=== PATIENT | male | born 1995 | race Hispanic/Latino ===

== ENCOUNTER 2018-05-09 02:25 | Emergency (ER) | payer MEDICAID, OTHER ==
[2018-05-09 02:33] VITALS: BMI 23.6
[2018-05-09 02:44] VITALS: TEMP 98
--- NOTE | 2018-05-09 03:51 | CT ---
EXAM: CT Head Without Intravenous Contrast CLINICAL HISTORY: 22 years old, male; Injury or trauma; Injury ETOH; Initial encounter; Blunt trauma (contusions or hematomas); Additional info: Head injury, alcohol abuse TECHNIQUE: Axial computed tomography images of the head/brain without intravenous contrast. All CT scans at this facility use at least one of these dose optimization techniques: automated exposure control; mA and/or kV adjustment per patient size (includes targeted exams where dose is matched to clinical indication); or iterative reconstruction. Coronal and sagittal reformatted images were created and reviewed. COMPARISON: No relevant prior studies available. FINDINGS: Brain: No hemorrhage. No significant periventricular microischemic changes. No edema. Ventricles: Appropriate for patient's age. Bones/joints: No acute fracture. Soft tissues: No radiopaque foreign body. Sinuses: No acute sinusitis. Mastoid air cells: No mastoid effusion. IMPRESSION: No acute CT intracranial abnormalities.
--- NOTE | 2018-05-09 04:00 | ED PDOC ---
HPI: Psych/Substance Abuse Time Seen by Provider: 05/09/18 02:33 Chief Complaint (Nursing): Alcohol Ingestion Chief Complaint (Provider): Head injury, ETOH History Per: Patient History/Exam Limitations: no limitations Onset/Duration Of Symptoms: Mins Current Symptoms Are (Timing): Still Present Additional Complaint(s): Pt without complaints. Pt with girlfriend who states that he fell down steps earlier in the evening and has been drinking. No LOC. No vomiting Past Medical History Reviewed: Historical Data, Nursing Documentation, Vital Signs Vital Signs: Last Vital Signs Temp 98.0 F 05/09/18 02:33 Pulse 110 H 05/09/18 02:33 Resp 18 05/09/18 02:33 BP 157/91 H 05/09/18 02:33 Pulse Ox 98 05/09/18 02:33 - Medical History PMH: No Chronic Diseases - Surgical History Surgical History: No Surg Hx - Family History Family History: States: Unknown Family Hx - Living Arrangements Living Arrangements: With Family - Social History Current smoker - smoking cessation education provided: No - Home Medications Home Medications: Ambulatory Orders Medication Instructions Recorded Ibuprofen [Motrin] 600 mg PO Q6H #20 tab 04/26/18 - Allergies Allergies/Adverse Reactions: Allergies Allergy/AdvReac Type Severity Reaction Status Date / Time No Known Allergies Allergy Unverified 05/09/18 02:33 Review of Systems ROS Statement: Except As Marked, All Systems Reviewed And Found Negative Constitutional: Negative for: Fever, Chills ENT: Negative for: Nose Discharge Respiratory: Negative for: Cough Gastrointestinal: Negative for: Nausea, Vomiting Physical Exam - Reviewed Nursing Documentation Reviewed: Yes Vital Signs Reviewed: Yes - Physical Exam Appears: Positive for: Well, Non-toxic, No Acute Distress Head Exam: Positive for: ATRAUMATIC, NORMAL INSPECTION, NORMOCEPHALIC Skin: Positive for: Normal Color, Warm, DRY Eye Exam: Positive for: Normal appearance ENT: Positive for: Normal ENT Inspection Neck: Positive for: Normal, Painless ROM Cardiovascular/Chest: Positive for: Regular Rate, Rhythm Respiratory: Positive for: Normal Breath Sounds. Negative for: Accessory Muscle Use, Respiratory Distress Back: Positive for: Normal Inspection Extremity: Positive for: Normal ROM Neurologic/Psych: Positive for: Alert, Oriented - ECG O2 Sat by Pulse Oximetry: 98 Medical Decision Making Medical Decision Making: Head Ct normal. Disposition - Clinical Impression Clinical Impression: Head injury - Patient ED Disposition Is Patient to be Admitted: No Counseled Patient/Family Regarding: Diagnosis, Need For Followup - Disposition Referrals: [facility] [Outside] Disposition: Routine/Home Disposition Time: 03:59 Condition: STABLE Instructions: Closed Head Injury (DC) Forms: Imperator (Greek)
[2018-05-09 05:12] VITALS: BP 149/80; PULSE 72; RESP 16; O2SAT 99
== END 2018-05-09 04:00 | disposition home or self-care (01) ==
LOC: H.ER 02:25
DX: F10.10 Alcohol abuse, uncomplicated (principal); S09.90XA Unspecified injury of head, initial encounter; W10.9XXA Fall (on) (from) unspecified stairs and steps, initial encounter; Y92.89 Other specified places as the place of occurrence of the external cause

== ENCOUNTER 2018-06-03 17:52 | Observation (INO) | payer MEDICAID, OTHER ==
[2018-06-03 17:53] VITALS: BMI 23.6
[2018-06-03 18:09] VITALS: O2SAT 99
[2018-06-03] MEDS ORDERED: ceFAZolin IV 1 gm in Dextrose 1 GM/50 ML BAG IVPB ONE (18:15)
[2018-06-03] MEDS ORDERED: Tdap Vaccine 0.5 ml Vial (10-64 yrs) IM ONE ×2 (18:15→18:23)
--- NOTE | 2018-06-03 18:24 | ED PDOC ---
Upper Extremity Pain/Injury Time Seen by Provider: 06/03/18 18:10 Chief Complaint (Nursing): Finger,Hand,&Wrist Chief Complaint (Provider): right thumb injury History Per: Patient History/Exam Limitations: no limitations Onset/Duration Of Symptoms: Days (2x) Current Symptoms Are (Timing): Still Present Severity: Moderate Additional Complaint(s): 22 year old male (right hand dominant) with no pertinent past medical history presents to the ED with complaints of right thumb pain status post an injury that occurred 2x days ago. Patient states he accidentally slammed his right thumb in a door, which caused pain and swelling. Patient reports that there was an open wound at the time of injury. PMD: None provided Past Medical History Reviewed: Historical Data, Nursing Documentation, Vital Signs Vital Signs: Last Vital Signs Temp 97.9 F 06/03/18 18:07 Pulse 78 06/03/18 18:07 Resp 18 06/03/18 18:07 BP 160/95 H 06/03/18 18:07 Pulse Ox 99 06/03/18 18:07 - Medical History PMH: No Chronic Diseases - Surgical History Surgical History: No Surg Hx - Family History Family History: States: No Known Family Hx - Social History Current smoker - smoking cessation education provided: Yes Alcohol: Other (yes) Drugs: Denies - Home Medications Home Medications: Ambulatory Orders Medication Instructions Recorded Ibuprofen [Motrin] 600 mg PO Q6H PRN 06/04/18 - Allergies Allergies/Adverse Reactions: Allergies Allergy/AdvReac Type Severity Reaction Status Date / Time No Known Allergies Allergy Unverified 05/09/18 02:33 Review of Systems ROS Statement: Except As Marked, All Systems Reviewed And Found Negative Musculoskeletal: Positive for: Other (right thumb pain and swelling) Physical Exam - Reviewed Nursing Documentation Reviewed: Yes Vital Signs Reviewed: Yes - Physical Exam Appears: Positive for: Well, Non-toxic, No Acute Distress Head Exam: Positive for: ATRAUMATIC, NORMOCEPHALIC Skin: Positive for: Normal Color Extremity: Positive for: Swelling (moderate swelling and fluctuance noted at dorsal surface of thumb distally. ), Other (right thumb: mild erythema). Negative for: Normal ROM (right thumb: limited ROM due to pain) Neurologic/Psych: Positive for: Alert, Oriented (3x) - Laboratory Results Result Diagrams: 06/04/18 08:11 06/04/18 08:11 - ECG O2 Sat by Pulse Oximetry: 99 (RA) Pulse Ox Interpretation: Normal - Progress ED Course And Treament: xry of hand: no fx d/w Dr. Quiroz. Recommends admission with iv antibiotics with I & D. Requests surg resident for evaluation of patient. Case d/w hospitalist Dr. Damon. Medical Decision Making Medical Decision Makin:10 Initial impression: 22 year old male with a right thumb injury Initial plan: * XRay hand right thumb * ancef 1 gm IV NS 100 mL IVPB once * tetanus 0.5 mL IM once * toradol 15 mg IVP * BMP * CBC * blood culture * reevaluation Scribe Attestation: Documented by Vee Henning, acting as a scribe for Gloria Hester PA-C. Provider Scribe Attestation: All medical record entries made by the Scribe were at my direction and personally dictated by me. I have reviewed the chart and agree that the record accurately reflects my personal performance of the history, physical exam, medical decision making, and the department course for this patient. I have also personally directed, reviewed, and agree with the discharge instructions and disposition. Disposition - Clinical Impression Clinical Impression: Cellulitis of right hand - Patient ED Disposition Is Patient to be Admitted: No - Disposition Disposition: Routine/Home Disposition Time: 20:19 Condition: FAIR - Pt Status Changed To: Hospital Disposition Of: Observation
--- NOTE | 2018-06-03 18:39 | RAD ---
Date of service: 06/03/2018 PROCEDURE: Right Thumb radiographs. HISTORY: Injury COMPARISON: None. TECHNIQUE: AP radiograph of the right hand, as well as spot oblique and lateral images of thumb were obtained. FINDINGS: RIGHT THUMB: Normal right thumb, without acute fracture or focal lesion. Remainder of the right hand (as seen on the AP view) grossly unremarkable. JOINTS: Normal. SOFT TISSUES: Normal. OTHER FINDINGS: None. IMPRESSION: No acute fracture or dislocation.
[2018-06-03 18:57] LABS: BASO # 0.1 K/uL (0.0-0.2); BASO % 0.6 % (0.0-2.0); EOS # 0.4 K/uL (0.0-0.7); EOS % 2.6 % (0.0-4.0); HEMOGLOBIN 16.7 g/dL (12.0-18.0); LYMPH # 2.8 K/uL (1.0-4.3); LYMPH % 19.5 % (20.0-40.0); MEAN CELL VOLUME 93.3 fl (80.0-94.0); MEAN CORPUSCULAR HEMOGLOBIN 31.3 pg (27.0-31.0); MEAN CORPUSCULAR HGB CONC 33.5 g/dL (33.0-37.0); MONO # 1.2 K/uL (0.0-0.8); MONO % 8.6 % (0.0-10.0); NEUT # 9.8 K/uL (1.8-7.0); NEUT % 68.7 % (50.0-75.0); RBC 5.35 Mil/uL (4.40-5.90); WHITE BLOOD COUNT 14.2 K/uL (4.8-10.8)
[2018-06-03 19:04] LABS: BLOOD UREA NITROGEN 16 mg/dl (9-20); CALCIUM 9.6 mg/dL (8.4-10.2); GFR NON-AFRICAN AMERICAN > 60
--- NOTE | 2018-06-03 22:36 | CP.PCM.HP ---
<Sameer Godinez - Last Filed: 06/04/18 06:18> History of Present Illness - History of Present Illness History of Present Illness: 22 year old male presents with 4 day history of thumb pain that began after slamming his right thumb in a door. Pain worsened along with swelling and erythema. He denies any fevers or chills. No drainage. No numbness or tingling of arm or hand. Otherwise patient feels well without other complaints. States ' I think I have a clot in my thumb' No chest pain, dyspnea, abdominal pain, nausea, vomiting, diarrhea. Patient cooperative but agitated throughout interview. PMH: denies MEdications: none No known drug allergies Social hx: works as digital production artist. denies etoh, tobacco, substance use Surgical Hx: hernia repair Present on Admission - Present on Admission Any Indicators Present on Admission: No Review of Systems - Constitutional Constitutional: absent: Chills, Fever - EENT Nose/Mouth/Throat: absent: Nasal Congestion, Nasal Discharge - Cardiovascular Cardiovascular: absent: Chest Pain, Chest Pain at Rest, Dyspnea - Respiratory Respiratory: absent: Cough, Dyspnea - Gastrointestinal Gastrointestinal: absent: Abdominal Pain, Nausea, Vomiting - Musculoskeletal Musculoskeletal: Other (pain right thumb). absent: Numbness, Tingling - Integumentary Integumentary: Erythema (erythema and edema of right thumb) Past Patient History - Infectious Disease Hx of Infectious Diseases: None - Past Social History Smoking Status: Never Smoked Alcohol: None (yes) Drugs: Denies - PSYCHIATRIC Hx Substance Use: No - SURGICAL HISTORY Hx Surgeries: No Meds Allergies/Adverse Reactions: Allergies Allergy/AdvReac Type Severity Reaction Status Date / Time No Known Allergies Allergy Unverified 05/09/18 02:33 Physical Exam - Constitutional Appears: Agitated - Head Exam Head Exam: ATRAUMATIC, NORMAL INSPECTION, NORMOCEPHALIC - Eye Exam Eye Exam: EOMI, Normal appearance, PERRL - ENT Exam ENT Exam: Mucous Membranes Moist, Normal Exam - Respiratory Exam Respiratory Exam: Clear to Auscultation Bilateral, NORMAL BREATHING PATTERN - Cardiovascular Exam Cardiovascular Exam: REGULAR RHYTHM, +S1, +S2 - Extremities Exam Additional comments: left hand unremarkable, significant right thumb erythema and edema - Neurological Exam Neurological exam: Alert, Oriented x3 - Psychiatric Exam Psychiatric exam: Agitated, Anxious - Skin Skin Exam: Erythema (right thumb) Results - Vital Signs Recent Vital Signs: Last Vital Signs Temp 98.5 F 06/03/18 21:44 Pulse 87 06/03/18 21:44 Resp 17 06/03/18 21:44 BP 142/81 06/03/18 21:44 Pulse Ox 99 06/03/18 21:17 - Labs Result Diagrams: 06/03/18 18:30 06/03/18 18:30 Labs: Laboratory Results - last 24 hr 06/03/18 06/03/18 18:30 18:30 WBC 14.2 H RBC 5.35 Hgb 16.7 Hct 49.9 MCV 93.3 MCH 31.3 H MCHC 33.5 RDW 14.0 Plt Count 253 MPV 8.0 Neut % (Auto) 68.7 Lymph % (Auto) 19.5 L [place] % (Auto) 8.6 Eos % (Auto) 2.6 Baso % (Auto) 0.6 Neut # (Auto) 9.8 H Lymph # (Auto) 2.8 [place] # (Auto) 1.2 H Eos # (Auto) 0.4 Baso # (Auto) 0.1 Sodium 141 Potassium 4.2 Chloride 104 Carbon Dioxide 27 Anion Gap 14 BUN 16 Creatinine 0.7 L Est GFR ( Amer) > 60 Est GFR (Non-Af Amer) > 60 Random Glucose 83 Calcium 9.6 Assessment & Plan - Assessment and Plan (Free Text) Assessment: 22 year old male admitted for right thumb cellulitis, possible abscess. Patient is hemodynamically stable and afebrile without leukocytosis. #Cellulitis with possible abscess of right thumb #DVT prophylaxis IVF Unasyn Surgical consult scds patient seen and examined with attending. <Sorin [place] - Last Filed: 06/04/18 06:45> Results - Vital Signs Recent Vital Signs: Last Vital Signs Temp 99.5 F 06/03/18 23:00 Pulse 93 H 06/03/18 23:00 Resp 20 06/03/18 23:30 BP 142/79 06/03/18 23:00 Pulse Ox 99 06/03/18 23:00 - Labs Result Diagrams: 06/03/18 18:30 06/03/18 18:30 Labs: Laboratory Results - last 24 hr 06/03/18 06/03/18 18:30 18:30 WBC 14.2 H RBC 5.35 Hgb 16.7 Hct 49.9 MCV 93.3 MCH 31.3 H MCHC 33.5 RDW 14.0 Plt Count 253 MPV 8.0 Neut % (Auto) 68.7 Lymph % (Auto) 19.5 L [place] % (Auto) 8.6 Eos % (Auto) 2.6 Baso % (Auto) 0.6 Neut # (Auto) 9.8 H Lymph # (Auto) 2.8 [place] # (Auto) 1.2 H Eos # (Auto) 0.4 Baso # (Auto) 0.1 Sodium 141 Potassium 4.2 Chloride 104 Carbon Dioxide 27 Anion Gap 14 BUN 16 Creatinine 0.7 L Est GFR ( Amer) > 60 Est GFR (Non-Af Amer) > 60 Random Glucose 83 Calcium 9.6
[2018-06-03] MEDS ORDERED: Lactated Ringer's 1,000 ML IV SCH (23:30)
--- NOTE | 2018-06-03 23:48 | CP.PCM.CON ---
History of Present Illness - History of Present Illness History of Present Illness: HAND SURGERY CONSULT NOTE FOR DR. GAMEZ 22 year old RHD male presents with Right thumb pain and swelling. On Thursday (5 days ago), he slammed his thumb in a door of a truck. There were no lacerations to the thumb and he continued work. 2 days ago, he started to have pain and swelling to the distal thumb. He denies any discharge from the area. No fever or chills. He states that he obtained over the counter antibiotics but he does not recall the name. He started taking them yesterday but without relief. 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 PMHx: denies Surgeries: Right inguinal hernia repair Medications: none Allergies: none Social hx: drinks etoh twice a week, smokes 3 cigarettes daily, marijuana use and cocaine use (last yesterday) Review of Systems - Review of Systems All systems: reviewed and no additional remarkable complaints except (as per HPI) Past Patient History - Infectious Disease Hx of Infectious Diseases: None - Past Social History Smoking Status: Never Smoked Alcohol: None (yes) Drugs: Denies - PSYCHIATRIC Hx Substance Use: No - SURGICAL HISTORY Hx Surgeries: No Meds Allergies/Adverse Reactions: Allergies Allergy/AdvReac Type Severity Reaction Status Date / Time No Known Allergies Allergy Unverified 05/09/18 02:33 - Medications Medications: Current Medications Ampicillin Sodium/Sulbactam (Sodium 1.5 gm/ Sodium Chloride) 100 mls @ 100 mls/hr IVPB Q6 JIMMY; Protocol Last Admin: 06/03/18 22:49 Dose: 100 mls/hr Lactated Ringer's (Lactated Ringer's) 1,000 mls @ 150 mls/hr IV .Q6H40M JIMMY Ibuprofen (Motrin Tab) 400 mg PO Q6H PRN PRN Reason: Pain, Mild (1-3) Pantoprazole Sodium (Protonix Ec Tab) 40 mg PO DAILY JIMMY Physical Exam - Constitutional Appears: Well, Non-toxic, No Acute Distress - Head Exam Head Exam: ATRAUMATIC, NORMAL INSPECTION - Eye Exam Eye Exam: EOMI, Normal appearance - ENT Exam ENT Exam: Mucous Membranes Moist - Respiratory Exam Respiratory Exam: NORMAL BREATHING PATTERN. absent: Respiratory Distress - Cardiovascular Exam Cardiovascular Exam: +S1, +S2 - GI/Abdominal Exam GI & Abdominal Exam: Soft. absent: Distended, Firm, Tenderness - Extremities Exam Additional comments: Right thumb distal to IP joint, edema, erythema with area of fluctuance and tenderness - Neurological Exam Neurological exam: Alert, CN II-XII Intact, Oriented x3 - Psychiatric Exam Psychiatric exam: Normal Affect, Normal Mood - Skin Skin Exam: Dry, Normal Color, Warm Results - Vital Signs Recent Vital Signs: Last Vital Signs Temp 98.5 F 06/03/18 21:44 Pulse 87 06/03/18 21:44 Resp 17 06/03/18 21:44 BP 142/81 06/03/18 21:44 Pulse Ox 99 06/03/18 21:17 - Labs Result Diagrams: 06/03/18 18:30 06/03/18 18:30 Labs: Laboratory Results - last 24 hr 06/03/18 06/03/18 18:30 18:30 WBC 14.2 H RBC 5.35 Hgb 16.7 Hct 49.9 MCV 93.3 MCH 31.3 H MCHC 33.5 RDW 14.0 Plt Count 253 MPV 8.0 Neut % (Auto) 68.7 Lymph % (Auto) 19.5 L [place] % (Auto) 8.6 Eos % (Auto) 2.6 Baso % (Auto) 0.6 Neut # (Auto) 9.8 H Lymph # (Auto) 2.8 [place] # (Auto) 1.2 H Eos # (Auto) 0.4 Baso # (Auto) 0.1 Sodium 141 Potassium 4.2 Chloride 104 Carbon Dioxide 27 Anion Gap 14 BUN 16 Creatinine 0.7 L Est GFR ( Amer) > 60 Est GFR (Non-Af Amer) > 60 Random Glucose 83 Calcium 9.6 Assessment & Plan - Assessment and Plan (Free Text) Assessment: 22 year old RHD male presents with Right thumb abscess - Afebrile, VSS - Leukocytosis WBC 14.2 - X-ray: no fracture - Bedside I&D performed. Purulent drainage expressed. Culture sent. Wound irrigated with saline and packed with iodaform. - Regular diet - IV antibiotics - FU labs in AM - Discussed plan with Dr. Gabriella Perez PGY-4 - Incision & Drainage Of Abscess Anesthesia: Lidocaine 2% Prep Used: Betadine Procedure: Incised W/Scalpel Blade#: (11 blade), Drained Pus, Irrigated Cavity W/Saline, Probed To Break Up Loculations, Packed W/Gauze (08/20 iodaform), Cultures Obtained And Sent To Lab
[2018-06-04 03:34] VITALS: RESP 20
[2018-06-04 08:24] LABS: BASO # 0.1 K/uL (0.0-0.2); BASO % 0.3 % (0.0-2.0); EOS # 0.4 K/uL (0.0-0.7); EOS % 3.1 % (0.0-4.0); HEMOGLOBIN 14.3 g/dL (12.0-18.0); LYMPH # 1.9 K/uL (1.0-4.3); LYMPH % 13.1 % (20.0-40.0); MEAN CELL VOLUME 93.3 fl (80.0-94.0); MEAN CORPUSCULAR HGB CONC 34.3 g/dL (33.0-37.0); MEAN PLATELET VOLUME 8.1 fl (7.2-11.7); MONO # 1.4 K/uL (0.0-0.8); NEUT # 10.6 K/uL (1.8-7.0); NEUT % 73.5 % (50.0-75.0); NRBC % 0.1 % (0.0-0.0); RBC 4.47 Mil/uL (4.40-5.90); RED CELL DISTRIBUTION WIDTH 13.9 % (11.5-14.5); WHITE BLOOD COUNT 14.4 K/uL (4.8-10.8)
[2018-06-04 08:27] LABS: BLOOD UREA NITROGEN 15 mg/dl (9-20); CALCIUM 8.7 mg/dL (8.4-10.2); GFR NON-AFRICAN AMERICAN > 60
[2018-06-04] MEDS ORDERED: Pantoprazole 40 mg EC Tab PO SCH (09:00)
[2018-06-04 09:01] VITALS: BP 140/72; PULSE 84; TEMP 98.7
--- NOTE | 2018-06-04 09:47 | CP.PCM.PN ---
Subjective - Date & Time of Evaluation Date of Evaluation: 06/04/18 Time of Evaluation: 07:00 - Subjective Subjective: Surgery: Dr. Quiroz Pt seen and examined. No acute overnight events. States he feels ok but has pain in his R thumb at the I&D site. Pt states he wants to leave and doesn't want to stay in the hospital any longer. Denies fevers/chills. Objective - Vital Signs/Intake and Output Vital Signs (last 24 hours): Temp Pulse Resp BP Pulse Ox 98.7 F 84 20 140/72 99 06/04/18 09:00 06/04/18 09:00 06/04/18 09:00 06/04/18 09:00 06/04/18 09:00 - Medications Medications: Current Medications Acetaminophen (Tylenol 325mg Tab) 975 mg PO Q8 [facility] Last Admin: 06/04/18 09:32 Dose: 975 mg Ampicillin Sodium/Sulbactam (Sodium 1.5 gm/ Sodium Chloride) 100 mls @ 100 mls/hr IVPB Q6 JIMMY; Protocol Last Admin: 06/04/18 04:20 Dose: 100 mls/hr Lactated Ringer's (Lactated Ringer's) 1,000 mls @ 150 mls/hr IV .Q6H40M JIMMY Last Admin: 06/04/18 00:41 Dose: 150 mls/hr Ibuprofen (Motrin Tab) 400 mg PO Q6H PRN PRN Reason: Pain, Mild (1-3) Last Admin: 06/04/18 04:25 Dose: 400 mg Ketorolac Tromethamine (Toradol) 15 mg IVP Q6 PRN PRN Reason: Pain, severe (8-10) Last Admin: 06/04/18 06:42 Dose: 15 mg Pantoprazole Sodium (Protonix Ec Tab) 40 mg PO DAILY JIMMY Last Admin: 06/04/18 08:38 Dose: 40 mg - Labs Labs: 06/04/18 08:11 06/04/18 08:11 - Constitutional Appears: Well, No Acute Distress - Head Exam Head Exam: ATRAUMATIC, NORMOCEPHALIC - Eye Exam Eye Exam: Normal appearance - ENT Exam ENT Exam: Mucous Membranes Moist - Cardiovascular Exam Cardiovascular Exam: RRR - Extremities Exam Additional comments: R thumb with cellulitic changes extending down to the MCP, incision on the volar thumb clean with packing - Neurological Exam Neurological Exam: Alert, Awake, Oriented x3 - Skin Skin Exam: Dry, Warm Assessment and Plan - Assessment and Plan (Free Text) Assessment: 22M with R thumb abscess/cellulitis s/p bedside I&D Plan: - cont IV ABX - warm saline/betadyne soaks for 30 mins TID - elevate R arm/hand - d/w Dr. Gabriella Byrd
--- NOTE | 2018-06-04 10:04 | CP.PCM.DIS ---
<Meche Morris - Last Filed: 06/04/18 10:05> Provider - Provider Date of Admission: 06/03/18 20:16 Attending physician: Anam Damon MD Time Spent in preparation of Discharge (in minutes): 35 Diagnosis - Discharge Diagnosis (1) Abscess of finger of right hand Status: Acute (2) Cellulitis of right hand Status: Acute Hospital Course - Lab Results Lab Results: Most Recent Lab Values WBC 14.4 K/uL (4.8-10.8) H 06/04/18 08:11 RBC 4.47 Mil/uL (4.40-5.90) 06/04/18 08:11 Hgb 14.3 g/dL (12.0-18.0) D 06/04/18 08:11 Hct 41.7 % (35.0-51.0) 06/04/18 08:11 MCV 93.3 fl (80.0-94.0) 06/04/18 08:11 MCH 32.0 pg (27.0-31.0) H 06/04/18 08:11 MCHC 34.3 g/dL (33.0-37.0) 06/04/18 08:11 RDW 13.9 % (11.5-14.5) 06/04/18 08:11 Plt Count 220 K/uL (130-400) 06/04/18 08:11 MPV 8.1 fl (7.2-11.7) 06/04/18 08:11 Neut % (Auto) 73.5 % (50.0-75.0) 06/04/18 08:11 Lymph % (Auto) 13.1 % (20.0-40.0) L 06/04/18 08:11 Frio % (Auto) 10.0 % (0.0-10.0) 06/04/18 08:11 Eos % (Auto) 3.1 % (0.0-4.0) 06/04/18 08:11 Baso % (Auto) 0.3 % (0.0-2.0) 06/04/18 08:11 Neut # (Auto) 10.6 K/uL (1.8-7.0) H 06/04/18 08:11 Lymph # (Auto) 1.9 K/uL (1.0-4.3) 06/04/18 08:11 Frio # (Auto) 1.4 K/uL (0.0-0.8) H 06/04/18 08:11 Eos # (Auto) 0.4 K/uL (0.0-0.7) 06/04/18 08:11 Baso # (Auto) 0.1 K/uL (0.0-0.2) 06/04/18 08:11 Sodium 138 mmol/l (132-148) 06/04/18 08:11 Potassium 4.0 MMOL/L (3.6-5.0) 06/04/18 08:11 Chloride 105 mmol/L (98-107) 06/04/18 08:11 Carbon Dioxide 26 mmol/L (22-30) 06/04/18 08:11 Anion Gap 11 (10-20) 06/04/18 08:11 BUN 15 mg/dl (9-20) 06/04/18 08:11 Creatinine 0.6 mg/dl (0.8-1.5) L 06/04/18 08:11 Est GFR ( Amer) > 60 06/04/18 08:11 Est GFR (Non-Af Amer) > 60 06/04/18 08:11 Random Glucose 111 mg/dL (75-110) H 06/04/18 08:11 Calcium 8.7 mg/dL (8.4-10.2) 06/04/18 08:11 - Hospital Course Hospital Course: 22 YO Male with no sig PMHx was admitted for right thumb cellulitis, and abscess. Patient underwent a bedside I&D by hand surgery and has been on IV antibiotics. This AM patient refuse further care and signed out against medical advice. Risks of AMA reviewed with patient including but not limited to wo rsening infection, abscess, sepsis, amputation, . Patient is currently hemodynamically stable and afebrile. Discharge Exam - Head Exam Head Exam: ATRAUMATIC, NORMOCEPHALIC - Eye Exam Eye Exam: EOMI, Normal appearance - ENT Exam ENT Exam: Mucous Membranes Moist - Respiratory Exam Respiratory Exam: Clear to PA & Lateral, NORMAL BREATHING PATTERN. absent: Wheezes - Cardiovascular Exam Cardiovascular Exam: REGULAR RHYTHM, +S1, +S2 - GI/Abdominal Exam GI & Abdominal Exam: Normal Bowel Sounds, Soft. absent: Tenderness - Extremities Exam Extremities exam: normal inspection Additional comments: R thumb in dressing Mild erythema around R thumb, no erythema on palm of the hand, or arms Good Cap refill Moving all fingers - Neurological Exam Neurological exam: Alert, Oriented x3 - Skin Skin Exam: Dry, Intact Discharge Plan - Follow Up Plan Condition: FAIR Disposition: AGAINST MEDICAL ADVICE Instructions: Skin Abscess, How to Wash Your Hands Properly, Cellulitis (Skin Infection), Adult (DC) Additional Instructions: follow up [address] Quiroz(hand surgeon). Soak for 30 minutes 3 times a day.: cup with 1/2 normal saline and 1/2 Betadine solution. Keep dry dressing on thumb. Against Medical Advice - AMA Patient Left Against Medical Advice: The patient declines admission to the hospital and wishes to leave the Hospital. This action is against my medical advice. This decision was made with informed refusal. The patient was told that admission to the hospital is necessary. Explanation of the reasons why were discussed. The risks of leaving were explained to the patient and include, but are not limited to, worsening of known or currently unknown conditions, permanent disability and from undiagnosed or untreated conditions. The patient has the capacity to make this informed decision and understands my explanation of the current medical problem and risks of leaving. The patient voluntarily accepts these risks and signed an AMA form documenting our conversation. The patient was given the opportunity to ask questions and reconsider. The patient was encouraged to return to the Emergency Department at any time for further care. <Anam Damon - Last Filed: 06/04/18 11:26> Provider - Provider Date of Admission: 06/03/18 20:16 Attending physician: Anam Damon MD Hospital Course - Lab Results Lab Results: Most Recent Lab Values WBC 14.4 K/uL (4.8-10.8) H 06/04/18 08:11 RBC 4.47 Mil/uL (4.40-5.90) 06/04/18 08:11 Hgb 14.3 g/dL (12.0-18.0) D 06/04/18 08:11 Hct 41.7 % (35.0-51.0) 06/04/18 08:11 MCV 93.3 fl (80.0-94.0) 06/04/18 08:11 MCH 32.0 pg (27.0-31.0) H 06/04/18 08:11 MCHC 34.3 g/dL (33.0-37.0) 06/04/18 08:11 RDW 13.9 % (11.5-14.5) 06/04/18 08:11 Plt Count 220 K/uL (130-400) 06/04/18 08:11 MPV 8.1 fl (7.2-11.7) 06/04/18 08:11 Neut % (Auto) 73.5 % (50.0-75.0) 06/04/18 08:11 Lymph % (Auto) 13.1 % (20.0-40.0) L 06/04/18 08:11 Frio % (Auto) 10.0 % (0.0-10.0) 06/04/18 08:11 Eos % (Auto) 3.1 % (0.0-4.0) 06/04/18 08:11 Baso % (Auto) 0.3 % (0.0-2.0) 06/04/18 08:11 Neut # (Auto) 10.6 K/uL (1.8-7.0) H 06/04/18 08:11 Lymph # (Auto) 1.9 K/uL (1.0-4.3) 06/04/18 08:11 Frio # (Auto) 1.4 K/uL (0.0-0.8) H 06/04/18 08:11 Eos # (Auto) 0.4 K/uL (0.0-0.7) 06/04/18 08:11 Baso # (Auto) 0.1 K/uL (0.0-0.2) 06/04/18 08:11 Sodium 138 mmol/l (132-148) 06/04/18 08:11 Potassium 4.0 MMOL/L (3.6-5.0) 06/04/18 08:11 Chloride 105 mmol/L (98-107) 06/04/18 08:11 Carbon Dioxide 26 mmol/L (22-30) 06/04/18 08:11 Anion Gap 11 (10-20) 06/04/18 08:11 BUN 15 mg/dl (9-20) 06/04/18 08:11 Creatinine 0.6 mg/dl (0.8-1.5) L 06/04/18 08:11 Est GFR ( Amer) > 60 06/04/18 08:11 Est GFR (Non-Af Amer) > 60 06/04/18 08:11 Random Glucose 111 mg/dL (75-110) H 06/04/18 08:11 Calcium 8.7 mg/dL (8.4-10.2) 06/04/18 08:11 Against Medical Advice - AMA Patient Left Against Medical Advice: The patient declines admission to the hospital and wishes to leave the Emergency Department. This action is against my medical advice. This decision was made with informed refusal. The patient was told that admission to the hospital is necessary. Explanation of the reasons why were discussed. The risks of leaving were explained to the patient and include, but are not limited to, worsening of known or currently unknown conditions, permanent disability and from undiagnosed or untreated conditions. The patient has the capacity to make this informed decision and understands my explanation of the current medical problem and risks of leaving. The patient voluntarily accepts these risks and signed an AMA form documenting our conversation. The patient was given the opportunity to ask questions and reconsider. The patient was encouraged to return to the Emergency Department at any time for further care. Attending/Attestation - Attestation I have personally seen and examined this patient.: Yes I have fully participated in the care of the patient.: Yes I have reviewed all pertinent clinical information, including history, physical exam and plan: Yes Notes (Text): 06/04/18 11:22 Patient was discharged against advised and refused further treatment after I&D of the abscess on the right thumb and receiving 2 doses of IV Unasyn and 1 dose of IV Cefazolin.
== END 2018-06-04 10:25 | disposition left against medical advice (07) ==
LOC: H.ER 17:52 → INTOOBSV 20:16 → H.ERHOLD 20:16 → H.PEDS 21:58
DX: L02.511 Cutaneous abscess of right hand (principal); L03.113 Cellulitis of right upper limb; Z23 Encounter for immunization; F12.90 Cannabis use, unspecified, uncomplicated; F14.90 Cocaine use, unspecified, uncomplicated; F17.210 Nicotine dependence, cigarettes, uncomplicated
CPT/HCPCS: 26010; 36415; 73140; 80048; 85025; 87040; 87070; 87181; 90471; 90715; 96365; 96375; 96376; 99285; G0378; J0295; J0690; J1885; J2270; J7120